=== PATIENT | male | born 1970 | race Two or more races ===

== ENCOUNTER 2020-05-27 16:53 | Emergency (ER) | payer OTHER ==
[~2020-05-27] VITALS: Ht 177.8 cm; Wt 81.6 kg
--- NOTE | 2020-05-27 17:03 | NUR ---
PT BIBRA C/O LOW BACK PAIN. PT REPORTS THAT HE GOT UP THIS AM, THEN FELT A SPASM AND THEN FELL AND COULD NOT GET UP. VS CHECKED. AWAITING MD MURCIA.
[2020-05-27] MEDS: KETOROLAC TROMETHAMINE INJ 60 MG/2 ML VIAL IM ONE (17:05)
[2020-05-27] MEDS: MORPHINE SULFATE INJ 2 MG/ML DISP.SYRIN IM ONE (17:05)
[2020-05-27] MEDS: ONDANSETRON 4 MG TAB.RAPDIS SL ONE (17:05)
[2020-05-27] MEDS ORDERED: MORPHINE SULFATE INJ 2 MG/ML DISP.SYRIN ONE (17:13)
[2020-05-27] MEDS ORDERED: MORPHINE SULFATE INJ 4 MG/ML DISP.SYRIN ONE (17:13)
[2020-05-27] MEDS ORDERED: KETOROLAC TROMETHAMINE INJ 30 MG/ML VIAL ONE (17:14)
[2020-05-27] MEDS ORDERED: ONDANSETRON 4 MG TAB.RAPDIS ONE (17:14)
--- NOTE | 2020-05-27 18:51 | NUR ---
SECOND ATTEMPT FOR XRAY LUMBAR SPINE @1845. PATIENT IN A LOT OF PAIN AND COULDN'T MOVE/TURN THE BACK FOR POSITIONING. JUAN SHEEHAN NOTIFIED. WILL ATTEMPT LATER.
[2020-05-27] MEDS ORDERED: HYDROMORPHONE 1 MG/1 ML DISP.SYRIN ONE (19:05)
[2020-05-27] MEDS: HYDROMORPHONE 1 MG/1 ML DISP.SYRIN IM ONE (19:08)
[2020-05-27 19:55] LABS: BASOPHILS # (AUTO) 0.1 /CMM (0.0-0.2); BASOPHILS % (AUTO) 1.1 % (0.0-2.0); HEMATOCRIT 52 % (39-51); HEMOGLOBIN 17.4 g/dL (13.5-17.5); LYMPHOCYTES # (AUTO) 1.4 /CMM (0.8-4.8); LYMPHOCYTES % (AUTO) 16.8 % (20.0-44.0); MEAN CORPUSCULAR HGB CONC 34 g/dl (31.0-36.0); MEAN CORPUSCULAR VOLUME 87 fL (80-96); MONOCYTES # (AUTO) 0.6 /CMM (0.1-1.30); NEUTROPHILS # (AUTO) 6.2 /CMM (1.8-8.9); NEUTROPHILS % (AUTO) 74.1 % (43.0-81.0); PLATELET COUNT (AUTO) 293 /CMM (150-450); RED BLOOD CELL COUNT(AUTO) 5.92 MIL/uL (4.5-6.0); WHITE BLOOD COUNT (AUTO) 8.3 K/uL (4.3-11.0)
[2020-05-27 19:56] LABS: BILIRUBIN,URINE Negative (NEGATIVE); BLOOD, URINE Negative Ery/uL (NEGATIVE); COLOR,URINE YELLOW (YELLOW); LEUKOCYTE ESTERASE ,URINE Negative (NEGATIVE); NITRITE, URINE Negative (NEGATIVE); PROTEIN,URINE Negative (NEGATIVE); UGLUCOSE Negative (NEGATIVE); UROBILINOGEN,URINE 0.2 EU/dL (0.2)
[2020-05-27 20:02] LABS: CALCIUM, SERUM 9.1 mg/dL (8.5-10.1); CREATININE 0.9 mg/dL (0.6-1.3); POTASSIUM 3.9 mmol/L (3.5-5.1)
[2020-05-27 20:08] LABS: ALBUMIN 3.8 g/dL (3.4-5.0); BILIRUBIN,TOTAL 0.6 mg/dL (0.2-1.0); TOTAL PROTEIN, SERUM 8.4 g/dL (6.4-8.2)
--- NOTE | 2020-05-27 20:16 | NUR ---
taken to ct
[2020-05-27 20:52] VITALS: BP 126/84
[2020-05-27] MEDS ORDERED: DEXAMETHASONE SOD PHOSPHATE 10 MG/ML VIAL ONE (21:00)
[2020-05-27] MEDS: DEXAMETHASONE SOD PHOSPHATE 10 MG/ML VIAL IV ONE (21:05)
--- NOTE | 2020-05-27 21:27 | NUR ---
[facility] CALLED PER MARGY HOBBS.
--- NOTE | 2020-05-27 21:51 | NUR ---
CALL FROM [facility]. PT ACCEPTED TO [facility] ER BY DR MOYER. # FOR REPORT [phone]. [facility] ETA 1809
[2020-05-27] MEDS: IV NS 0.9% 1,000 ML IV ONE (21:56)
--- NOTE | 2020-05-27 22:01 | NUR ---
REPORT GIVEN TO GENESIS MARTINEZ FOR [facility].
--- NOTE | 2020-05-27 22:11 | NUR ---
REPORT GIVEN TO TRANSPORT TEAM FOR [facility]. AND TRANSFERRING RESPONSIBILTIES TO [facility]
== END 2020-05-27 22:13 | disposition short-term general hospital (02) ==
LOC: ER 16:59
DX: M51.26 Other intervertebral disc displacement, lumbar region (principal); W18.39XA Other fall on same level, initial encounter; Y93.89 Activity, other specified; Y92.89 Other specified places as the place of occurrence of the external cause; Y99.8 Other external cause status
CPT/HCPCS: 36415; 72131; 74176; 80053; 81001; 85025; 96361; 96372 ×2; 96374; 99285; J1100; J1170; J1885; J2270 ×2; Q0162; 81000-TC